=== PATIENT | female | born 1990 | race Caucasian/White ===

== ENCOUNTER 2022-12-18 21:19 | Emergency (ER) | payer BC, OTHER ==
[2022-12-18] MEDS ORDERED: Amoxicillin/Potassium Clav 875 MG TAB ONE (22:17)
== END 2022-12-18 23:08 | disposition home or self-care (01) ==
LOC: ERS 21:19
DX: S60.512A Abrasion of left hand, initial encounter (principal); Y35.811A Legal intervention involving manhandling, law enforcement official injured, initial encounter